=== PATIENT | male | born 1955 | race Two or more races ===

== ENCOUNTER 2020-02-26 09:14 | Outpatient (CLI) | payer OTHER | END 2020-02-26 09:48 | disposition home or self-care (01) | LOC: TOM 09:14 → EDBD 09:14 → TOM 09:48 | DX: K57.90 Diverticulosis of intestine, part unspecified, without perforation or abscess without bleeding (principal); K76.0 Fatty (change of) liver, not elsewhere classified; R10.84 Generalized abdominal pain; N40.1 Benign prostatic hyperplasia with lower urinary tract symptoms ==